=== PATIENT | male | born 1955 | race Caucasian/White ===

== ENCOUNTER 2017-12-03 10:34 | Emergency (ER) | payer SELFPAY ==
[~2017-12-03] VITALS: Ht 170.2 cm; Wt 90.5 kg
[~2017-12-03 10:34] MED LIST: AMOX600S PO; HCTZ25 PO; LISI-363 PO; PRED20 PO
[2017-12-03] MEDS ORDERED: IOHEXOL 350 MG/ML 10 ML VIAL (for RAD DIAG) IVCONTRAST ONE (10:35)
[2017-12-03 10:49] VITALS: BP 171/79; PULSE 86; RESP 18; TEMP 98.3; O2SAT 99
--- NOTE | 2017-12-03 11:21 | PD ---
HPI Chief Complaint: Complaint Time Seen by Provider: 11:06 Travel History International Travel<30 days: No Contact w/Intl Traveler<30days: No Traveled to known affect area: No History of Present Illness HPI 62-year-old male presents emergency department for evaluation of difficulty urinating and lower abdominal pressure 4 days. Patient tells me that he has began to dribble urine and only a small amount comes out when he does void. It was tea colored 4 days ago but it has lightened up and is now yellow. Patient states she has not had a bowel movement for 2 days. He tells me that he is never had problems like this in the past. Denies any testicular pain or swelling. Denies any fever chills. Denies any nausea or vomiting. He denies any prostate history. Patient states he has not had a colonoscopy since he was 42 years old. His father from colon cancer. PFSH Past Medical History Cancer: No Cardiovascular Problems: No Diabetes: No Endocrine: No Genitourinary: No Hepatitis: No Hiatal Hernia: Yes (REPAIRED) Hypertension: Yes Immune Disorder: No Musculoskeletal: Yes (NECK AND BACK) Neurologic: No Psychiatric: No Respiratory: No Thyroid Disease: No Past Surgical History Abdominal Surgery: Yes (HERNIA REPAIR) AICD: No Body Medical Devices: METAL RIGHT FOREARM FROM MACHINERY Cardiac Surgery: No Ear Surgery: No Endocrine Surgery: No Eye Surgery: No Genitourinary Surgery: No Gynecologic Surgery: No Joint Replacement: No Oral Surgery: No Pacemaker: No Thoracic Surgery: No Other Surgery: Yes (HERNIA REPAIR) Social History Alcohol Use: No Tobacco Use: Yes Substance Use: No Allergies-Medications (Allergen,Severity, Reaction): Coded Allergies: No Known Allergies (Unverified Adverse Reaction, Unknown, 12/03/17) Reported Meds & Prescriptions Reported Meds & Active Scripts Active Flomax (Tamsulosin HCl) 0.4 Mg Cap 0.4 Mg PO HS Ciprofloxacin (Ciprofloxacin HCl) 500 Mg Tab 500 Mg PO BID 14 Days Review of Systems Except as stated in HPI: all other systems reviewed are Neg Physical Exam Narrative GENERAL: Well-nourished male patient, ambulatory and in no acute distress SKIN: Focused skin assessment warm/dry. HEAD: Atraumatic. Normocephalic. EYES: Pupils equal and round. No scleral icterus. No injection or drainage. ENT: No nasal bleeding or discharge. Mucous membranes pink and moist. NECK: Trachea midline. No JVD. CARDIOVASCULAR: Regular rate and rhythm. No murmur appreciated. RESPIRATORY: No accessory muscle use. Clear to auscultation. Breath sounds equal bilaterally. GASTROINTESTINAL: Abdomen soft, non-tender, nondistended. No guarding. No rebound tenderness. Hepatic and splenic margins not palpable. GENITOURINARY: Circumcised. Testes descended bilaterally without evidence of rotation. No lesions or erythema. No urethral discharge. RECTAL EXAM: Large hard prostate is palpable. Nontender., stool is brown. MUSCULOSKELETAL: No obvious deformities. No clubbing. No cyanosis. No edema. NEUROLOGICAL: Awake and alert. No obvious cranial nerve deficits. Motor grossly within normal limits. Normal speech. PSYCHIATRIC: Appropriate mood and affect; insight and judgment normal. Data Data Last Documented VS Vital Signs Date Time Temp Pulse Resp B/P (MAP) Pulse Ox O2 Delivery O2 Flow Rate FiO2 12/03/17 10:49 98.3 86 18 171/79 (109) 99 Orders Orders Complete Blood Count With Diff (12/03/17 11:19) Comprehensive Metabolic Panel (12/03/17 11:19) Prothrombin Time / Inr (Pt) (12/03/17 11:19) Act Partial Throm Time (Ptt) (12/03/17 11:19) Urinalysis - C+S If Indicated (12/03/17 11:19) Ct Abd/Pel W Iv Contrast(Rout) (12/03/17 11:19) Iv Access Insert/Monitor (12/03/17 11:19) Ecg Monitoring (12/03/17 11:19) Oximetry (12/03/17 11:19) Sodium Chloride 0.9% Flush (Ns Flush) (12/03/17 11:30) ^ Straight Catheter (12/03/17 11:19) Urine Culture (12/03/17 11:45) Ceftriaxone Inj (Rocephin Inj) (12/03/17 12:30) Sodium Chlor 0.9% 1000 Ml Inj (Ns 1000 M (12/03/17 12:30) Iohexol 350 Inj (Omnipaque 350 Inj) (12/03/17 10:35) Ed Discharge Order (12/03/17 14:05) Labs Laboratory Tests Test 12/03/17 11:45 White Blood Count 9.7 TH/MM3 Red Blood Count 4.57 MIL/MM3 Hemoglobin 14.6 GM/DL Hematocrit 42.4 % Mean Corpuscular Volume 92.7 FL Mean Corpuscular Hemoglobin 31.9 PG Mean Corpuscular Hemoglobin Concent 34.4 % Red Cell Distribution Width 13.2 % Platelet Count 290 TH/MM3 Mean Platelet Volume 8.1 FL Neutrophils (%) (Auto) 75.2 % Lymphocytes (%) (Auto) 14.9 % Monocytes (%) (Auto) 9.2 % Eosinophils (%) (Auto) 0.3 % Basophils (%) (Auto) 0.4 % Neutrophils # (Auto) 7.3 TH/MM3 Lymphocytes # (Auto) 1.4 TH/MM3 Monocytes # (Auto) 0.9 TH/MM3 Eosinophils # (Auto) 0.0 TH/MM3 Basophils # (Auto) 0.0 TH/MM3 CBC Comment DIFF FINAL Differential Comment Prothrombin Time 10.4 SEC Prothromb Time International Ratio 1.0 RATIO Activated Partial Thromboplast Time 29.0 SEC Urine Color YELLOW Urine Turbidity CLOUDY Urine pH 6.0 Urine Specific [place] 1.018 Urine Protein 100 mg/dL Urine Glucose (UA) NEG mg/dL Urine Ketones TRACE mg/dL Urine Occult Blood LARGE Urine Nitrite NEG Urine Bilirubin NEG Urine Urobilinogen LESS THAN 2.0 MG/DL Urine Leukocyte Esterase LARGE Urine RBC 90 /hpf Urine WBC /hpf Urine WBC Clumps MANY Urine Bacteria MANY /hpf Urine Mucus FEW /lpf Microscopic Urinalysis Comment CULTURE INDICATED Blood Urea Nitrogen 15 MG/DL Creatinine 1.08 MG/DL Random Glucose 84 MG/DL Total Protein 7.8 GM/DL Albumin 3.3 GM/DL Calcium Level 8.9 MG/DL Alkaline Phosphatase 95 U/L Aspartate Amino Transf (AST/SGOT) 16 U/L Alanine Aminotransferase (ALT/SGPT) 19 U/L Total Bilirubin 0.9 MG/DL Sodium Level 138 MEQ/L Potassium Level 3.7 MEQ/L Chloride Level 102 MEQ/L Carbon Dioxide Level 26.6 MEQ/L Anion Gap 9 MEQ/L Estimat Glomerular Filtration Rate 70 ML/MIN MDM Medical Decision Making Medical Screen Exam Complete: Yes Emergency Medical Condition: Yes Medical Record Reviewed: Yes Differential Diagnosis Urethritis versus cystitis versus BPH versus prostate cancer versus neoplasm Narrative Course 62-year-old male presents emergency department for evaluation of difficulty urinating with abdominal pressure 4 days. Patient appears well without distress. Penile exam is reassuring. Rectal exam is with a large palpable prostate. Straight catheter is inserted to empty bladder. Laboratory Tests Test 12/03/17 11:45 White Blood Count 9.7 TH/MM3 Red Blood Count 4.57 MIL/MM3 Hemoglobin 14.6 GM/DL Hematocrit 42.4 % Mean Corpuscular Volume 92.7 FL Mean Corpuscular Hemoglobin 31.9 PG Mean Corpuscular Hemoglobin Concent 34.4 % Red Cell Distribution Width 13.2 % Platelet Count 290 TH/MM3 Mean Platelet Volume 8.1 FL Neutrophils (%) (Auto) 75.2 % Lymphocytes (%) (Auto) 14.9 % Monocytes (%) (Auto) 9.2 % Eosinophils (%) (Auto) 0.3 % Basophils (%) (Auto) 0.4 % Neutrophils # (Auto) 7.3 TH/MM3 Lymphocytes # (Auto) 1.4 TH/MM3 Monocytes # (Auto) 0.9 TH/MM3 Eosinophils # (Auto) 0.0 TH/MM3 Basophils # (Auto) 0.0 TH/MM3 CBC Comment DIFF FINAL Differential Comment Prothrombin Time 10.4 SEC Prothromb Time International Ratio 1.0 RATIO Activated Partial Thromboplast Time 29.0 SEC Urine Color YELLOW Urine Turbidity CLOUDY Urine pH 6.0 Urine Specific [place] 1.018 Urine Protein 100 mg/dL Urine Glucose (UA) NEG mg/dL Urine Ketones TRACE mg/dL Urine Occult Blood LARGE Urine Nitrite NEG Urine Bilirubin NEG Urine Urobilinogen LESS THAN 2.0 MG/DL Urine Leukocyte Esterase LARGE Urine RBC 90 /hpf Urine WBC /hpf Urine WBC Clumps MANY Urine Bacteria MANY /hpf Urine Mucus FEW /lpf Microscopic Urinalysis Comment CULTURE INDICATED Blood Urea Nitrogen 15 MG/DL Creatinine 1.08 MG/DL Random Glucose 84 MG/DL Total Protein 7.8 GM/DL Albumin 3.3 GM/DL Calcium Level 8.9 MG/DL Alkaline Phosphatase 95 U/L Aspartate Amino Transf (AST/SGOT) 16 U/L Alanine Aminotransferase (ALT/SGPT) 19 U/L Total Bilirubin 0.9 MG/DL Sodium Level 138 MEQ/L Potassium Level 3.7 MEQ/L Chloride Level 102 MEQ/L Carbon Dioxide Level 26.6 MEQ/L Anion Gap 9 MEQ/L Estimat Glomerular Filtration Rate 70 ML/MIN Last Impressions Abdomen/Pelvis CT 12/03/17 1119 Signed Impressions: Service Date/Time: Sunday, December 03, 2017 13:34 - CONCLUSION: 1. Diffuse urinary bladder wall thickening and mild adjacent inflammatory change dictating possible cystitis. 2. Enlarged prostate. 3. Scattered colonic diverticula. No evidence of acute diverticulitis. Ilya Smith MD I discussed the findings with my attending as well as the patient and his . Patient will be discharged to follow-up with urologist. He will be started on oral antibiotics and given Flomax. He agrees to return immediately with acute worsening symptoms. Diagnosis Primary Impression: Cystitis Additional Impressions: Enlarged prostate Dysuria Referrals: Primary Care Physician Urologist Patient Instructions: Benign Prostatic Hypertrophy (ED), General Instructions, Urinary Tract Infection in Men (ED) Additional Instructions: Follow-up with the primary care Seek urology evaluation Maintain adequate Oral hydration Return immediately with acute worsening of symptoms Med/Other Pt SpecificInfo: Prescription(s) given Scripts Tamsulosin (Flomax) 0.4 Mg Cap 0.4 MG PO HS for Manage Prostate Problems, #15 CAP 0 Refills Prov: Taylor Porras 12/03/17 Ciprofloxacin (Ciprofloxacin) 500 Mg Tab 500 MG PO BID for Infection for 14 Days, #28 TAB 0 Refills Prov: Taylor Porras 12/03/17 Disposition: 01 DISCHARGE HOME Condition: Stable Taylor Porras December 03, 2017 11:21
[2017-12-03] MEDS ORDERED: SODIUM CHLORIDE 0.9% FLUSH 10 ML FLUSH IV FLUSH PRN (11:30)
[2017-12-03 12:04] LABS: AUTOMATED NEUTROPHIL # 7.3 TH/MM3 (1.8-7.7); BASOPHIL % 0.4 % (0.0-2.0); EOSINOPHIL % 0.3 % (0.0-4.0); HEMATOCRIT 42.4 % (39.0-51.0); HEMOGLOBIN 14.6 GM/DL (13.0-17.0); LYMPH % 14.9 % (9.0-44.0); LYMPHOCYTE # 1.4 TH/MM3 (1.0-4.8); MEAN CELL VOLUME 92.7 FL (80.0-100.0); MEAN CORPUSCULAR HEMOGLOBIN 31.9 PG (27.0-34.0); MEAN CORPUSCULAR HGB CONC 34.4 % (32.0-36.0); MEAN PLATELET VOLUME 8.1 FL (7.0-11.0); MONO % 9.2 % (0.0-8.0); MONOCYTE # 0.9 TH/MM3 (0-0.9); NEUT % 75.2 % (16.0-70.0); PLATELET COUNT 290 TH/MM3 (150-450); RED BLOOD COUNT 4.57 MIL/MM3 (4.50-5.90); RED CELL DISTRIBUTION WIDTH 13.2 % (11.6-17.2); WHITE BLOOD COUNT 9.7 TH/MM3 (4.0-11.0)
[2017-12-03 12:06] LABS: PROTHROMBIN TIME - PATIENT 10.4 SEC (9.8-11.6)
[2017-12-03 12:09] LABS: BACTERIA, URINE MANY /hpf; BILIRUBIN, URINE NEG (NEG); BLOOD, URINE LARGE (NEG); GLUCOSE,URINE NEG (NEG); KETONE, URINE TRACE mg/dL (NEG); MUCUS URINE FEW /lpf (OCC); NITRITE,URINE NEG (NEG); URINE COLOR YELLOW (YELLW/STRAW); URINE LEUKOCYTE ESTERASE LARGE (NEG); WHITE BLOOD CELL CLUMPS MANY
[2017-12-03 12:24] LABS: ALBUMIN 3.3 GM/DL (3.4-5.0); ALT (GPT) 19 U/L (12-78); AST (GOT) 16 U/L (15-37); BICARBONATE 26.6 MEQ/L (21.0-32.0); BLOOD UREA NITROGEN 15 MG/DL (7-18); CALCIUM 8.9 MG/DL (8.5-10.1); CHLORIDE 102 MEQ/L (98-107); CREATININE 1.08 MG/DL (0.60-1.30); GLOMERULAR FILTRATION RATE 70 ML/MIN (>89); GLUCOSE,RANDOM 84 MG/DL (74-106); SODIUM (NA) 138 MEQ/L (136-145)
[2017-12-03 12:27] LABS: ALKALINE PHOSPHATASE 95 U/L (45-117); TOTAL BILIRUBIN ADULT 0.9 MG/DL (0.2-1.0); TOTAL PROTEIN 7.8 GM/DL (6.4-8.2)
[2017-12-03] MEDS ORDERED: cefTRIAXone INJ 1,000 MG in SODIUM CHLORIDE 0.9% INJ 100 ML IV ONE (12:30)
[2017-12-03] MEDS ORDERED: SODIUM CHLOR 0.9% 1000 ML INJ 1,000 ML IV ONE (12:30)
--- NOTE | 2017-12-03 14:02 | RADRPT ---
EXAM DATE/TIME: 12/03/2017 13:34 [facility] COMPARISON: No previous studies available for comparison. INDICATIONS : Difficulty urinating, dark urine. IV CONTRAST: 97 cc Omnipaque 350 (iohexol) IV ORAL CONTRAST: No oral contrast ingested. RADIATION DOSE: 12.91 CTDIvol (mGy) MEDICAL HISTORY : Gastroesophageal reflux disease. Hernia, hiatal. Hypertension. SURGICAL HISTORY : None. ENCOUNTER: Initial ACUITY: 2 days PAIN SCALE: 4/10 LOCATION: Bilateral lower quadrant TECHNIQUE: Volumetric scanning of the abdomen and pelvis was performed. Using automated exposure control and ad justment of the mA and/or kV according to patient size, radiation dose was kept as low as reasonably achievable to obtain optimal diagnostic quality images. DICOM format image data is available electro nically for review and comparison. FINDINGS: LOWER LUNGS: The visualized lower lungs are clear. LIVER: Multiple scattered subcentimeter hypodensities in the left lobe of the liver and a single subcentimet er hypodensity in the right lobe of the liver. Most likely to represent cysts or hemangiomas. Gallbla dder within normal limits. SPLEEN: Normal size without lesion. PANCREAS: Within normal limits. KIDNEYS: Normal in size and shape. There is no mass, stone or hydronephrosis. ADRENAL GLANDS: Within normal limits. VASCULAR: There is no aortic aneurysm. BOWEL/MESENTERY: Scattered colonic diverticula. No inflammatory changes to suggest acute diverticulitis. Appendix with in normal limits. No free air or free fluid. No evidence of bowel dilatation. ABDOMINAL WALL: Within normal limits. RETROPERITONEUM: There is no lymphadenopathy. BLADDER: Estrada catheter is seen in the bladder. Bladder is collapsed. Diffuse urinary bladder wall thickening. Mild inflammatory changes adjacent to the urinary bladder. REPRODUCTIVE: Prostate measures 4.8 cm in transverse dimension. INGUINAL: There is no lymphadenopathy or hernia. MUSCULOSKELETAL: Facet arthrosis lower lumbar spine. Bridging osteophytes at the sacroiliac joints. Mild osteoarthriti c findings of the hips. CONCLUSION: 1. Diffuse urinary bladder wall thickening and mild adjacent inflammatory change dictating possible c ystitis. 2. Enlarged prostate. 3. Scattered colonic diverticula. No evidence of acute diverticulitis. Ilya Smith MD on December 03, 2017 at 13:54 Board Certified Radiologist. This report was verified electronically.
[2017-12-03] MEDS ORDERED: TAMS5CAP PO (14:07)
[2017-12-03] MEDS ORDERED: CIPR500T2 PO (14:07)
== END 2017-12-03 15:05 | disposition home or self-care (01) ==
LOC: NEPC 10:34
DX: N30.90 Cystitis, unspecified without hematuria (principal); N40.1 Benign prostatic hyperplasia with lower urinary tract symptoms; R30.0 Dysuria; B96.20 Unspecified Escherichia coli [E. coli] as the cause of diseases classified elsewhere; I10 Essential (primary) hypertension
CPT/HCPCS: 74177; 80053; 81001; 85025; 85610; 85730; 87077; 87086; 87186; 96365; 96366; 99285; J0696; J7030; P9612; Q9967